=== PATIENT | female | born 1995 | race Caucasian/White ===

== ENCOUNTER → 2019-06-17 | Outpatient (CLI) | payer OTHER ==
--- NOTE | 2019-06-17 17:31 | KCIC ---
MR of the left elbow HISTORY: Left elbow fracture, pain and swelling. Elbow fracture on June 06, 2019. TECHNIQUE: Routine multiplanar sequences are obtained. FINDINGS: Patient's known fracture at the radial head and neck is identified. Alignment appears fairly similar as well was seen on radiographs of 06/07/2019, with mild impaction. Acute marrow edema/contusion. No other fracture is identified. Biceps and brachialis tendons are intact. Triceps tendon intact. Common flexor tendon and ulnar collateral ligament are intact. Common extensor tendon is mildly edematous, compatible with a mild sprain or degeneration. No evidence of tear. Lateral collateral ligament complex intact. Moderate joint effusion. Mild soft tissue edema around the elbow. IMPRESSION: 1. Fracture of the radial head/neck with mild impaction. 2. No other significant internal derangement. Electronically signed by: Freddy Feliciano MD (06/17/2019 5:28 PM) [id number]
== END | disposition home or self-care (01) ==
LOC: KCIC MRI 16:02
PROVIDERS: ATTEND Physician Assistant
DX: S52.125D Nondisplaced fracture of head of left radius, subsequent encounter for closed fracture with routine healing (principal); M25.422 Effusion, left elbow; X58.XXXD Exposure to other specified factors, subsequent encounter
CPT/HCPCS: 73221